=== PATIENT | female | born 1930 | race Caucasian/White ===

== ENCOUNTER → 2016-10-21 | Outpatient (CLI) | payer BC ==
[~2016-10-21] MED LIST: ASPEC81 PO; CALCTAB5 PO; LEVO125T57 PO; LISI5TAB3 PO; MULT-506 PO; NTRGSL/4 UT; PANT40TA PO
== END | disposition home or self-care (01) ==
LOC: C.LAB1850 08:47
PROVIDERS: ATTEND Internal Medicine
DX: E03.9 Hypothyroidism, unspecified (principal)

== ENCOUNTER → 2017-03-28 | Outpatient (CLI) | payer BC ==
--- NOTE | 2017-03-28 12:37 | MAMMOGRAPHY REPORT ---
UNILATERAL LEFT DIGITAL DIAGNOSTIC MAMMOGRAM TOMOSYNTHESIS WITH CAD: 03/28/2017 CLINICAL HISTORY: 86-year-old woman presents for follow-up of the left breast. She recently underwen t core needle biopsy for a dense hypoechoic mass in the 12:00 left breast which yielded benign stroma l fibrosis. This was an area that had been previously biopsied years ago and also yielded benign pat hology, but looked increasingly conspicuous on ultrasound. Also follow-up of an asymmetry in the sup erior left breast on the MLO view, projecting over the pectoralis muscle. TECHNIQUE: Left breast tomosynthesis in addition to standard 2D mammography was performed. Current st udy was also evaluated with a Computer Aided Detection (CAD) system. COMPARISON: Comparison is made to exams dated: 08/16/2016 mammogram, 08/16/2016 ultrasound biopsy, 1 10/11/2015 ultrasound, 08/11/2016 mammogram, 07/28/2016 mammogram, and 07/25/2015 mammogram - [facility]. BREAST COMPOSITION: The tissue of the left breast is heterogeneously dense, which may obscure small masses. FINDINGS: There is a ring shaped metallic biopsy marker clip in the 12:00 anterior left breast, denot ing the site of the biopsied stromal fibrosis. There are stable groupings of benign-appearing calcif ications elsewhere in the left breast. Mild vascular calcification. The asymmetry projecting in the superior posterior left breast, over the pectoralis muscle on the MLO view is less conspicuous lexa ring to the July mammograms. When comparing back to all available prior mammograms, this asymmet ry appears very similar to the 2011 exam and also somewhat similar to the other mammograms, suggestin g benign fibroglandular tissue. No new suspicious mass, architectural distortion or cluster of micro calcifications is seen in the left breast. Recommend return to annual screening mammography schedule (due July 2017). IMPRESSION: ACR BI-RADS CATEGORY 2: BENIGN Less prominent left superior asymmetry, which appears very similar to the 2011 mammograms, most likel y normal for the glandular tissue. Stable post biopsy changes in the 12:00 anterior left breast. Th ere is no mammographic evidence of malignancy in the left breast. Return to annual mammogram screenin g schedule is recommended. The patient has been verbally notified of the results. Approximately 10% of breast cancers are not detected with mammography. A negative mammographic report should not delay biopsy if a clinically suggestive mass is present. Marion Munoz M.D. ay/:03/28/2017 10:42:20 Town Planner: Neeru BURGOS(Lindy)(Jim), [facility] letter sent: Normal 1/2 BI-RADS Code: ACR BI-RADS Category 2: Benign
== END | disposition home or self-care (01) ==
LOC: C.MAMM 09:54
PROVIDERS: ATTEND Internal Medicine
DX: Z09 Encounter for follow-up examination after completed treatment for conditions other than malignant neoplasm (principal); N63 Unspecified lump in breast

== ENCOUNTER → 2017-04-05 | Outpatient (CLI) | payer BC ==
--- NOTE | 2017-04-05 11:49 | DIAGNOSTIC IMAGING REPORT ---
BILATERAL CAROTID DOPPLER STUDY HISTORY: Mental status change I10 RzomhefstlwlX25.1 [id number] Lump on neck COMPARISON: None. TECHNIQUE: Real-time, grayscale, and color Doppler sonography of the carotid arteries was performed. Imaging reviewed in the transverse and longitudinal planes. All measurements were calculated based on NASCET criteria. FINDINGS: Antegrade flow is seen in the bilateral vertebral arteries. The brachial pressures are hemodynamically similar. Moderate plaque formation bilaterally The peak systolic velocity within the right ICA is 40. The right systolic ratio is 0.8. The peak systolic velocity within the left ICA is 45. The left systolic ratio is 0.8. IMPRESSION: No hemodynamically significant stenosis seen within the carotid arteries. Mild atherosclerotic change bilaterally Electronically signed by: Reymundo Smith M.D. 04/05/2017 11:47 AM Dictated Date/Time: 04/05/2017 11:46 AM
--- NOTE | 2017-04-05 12:16 | DIAGNOSTIC IMAGING REPORT ---
ULTRASOUND OF THE THYROID GLAND CLINICAL HISTORY: Lymphadenopathy. Palpable finding in the right neck. COMPARISON STUDY: Thyroid ultrasound dated 06/03/[address] scan of the neck dated 09/10/2015. TECHNIQUE: Real-time, grayscale, and color flow sonography of the thyroid gland is performed utilizing a high-frequency linear transducer. Images are reviewed in the transverse and longitudinal planes. FINDINGS: Right lobe: The right lobe of the thyroid gland is atrophic and heterogeneous in echotexture, measuring 2.9 x 1.5 x 1.3 cm. Left lobe: The left lobe of the thyroid gland is atrophic and heterogeneous in echotexture, measuring 2.9 x 1.0 x 1.1 cm. Isthmus: The thyroid isthmus is normal in appearance and measures 0.1 cm in AP diameter. Soft tissues: No cervical lymphadenopathy is identified. The finding of palpable concern corresponds to the right carotid bulb. Small scattered and benign-appearing cervical lymph nodes are incidentally noted. IMPRESSION: 1. The thyroid gland is atrophic and heterogeneous. 2. No cervical lymphadenopathy is seen. 3. The finding of palpable concern in the right neck corresponds to the carotid bulb. Electronically signed by: Oswaldo Bunch M.D. 04/05/2017 12:15 PM Dictated Date/Time: 04/05/2017 12:12 PM
== END | disposition home or self-care (01) ==
LOC: C.ULTRBC 10:40
PROVIDERS: ATTEND Internal Medicine
DX: R22.1 Localized swelling, mass and lump, neck (principal); R59.1 Generalized enlarged lymph nodes; I10 Essential (primary) hypertension

== ENCOUNTER → 2017-10-07 | Outpatient (CLI) | payer BC ==
[2017-10-07 11:17] LABS: BLOOD UREA NITROGEN 33 mg/dl (7-18); CARBON DIOXIDE 25 mmol/L (21-32); CREATININE 1.07 mg/dl (0.60-1.20); GLUCOSE 92 mg/dl (70-99); POTASSIUM 4.2 mmol/L (3.5-5.1); SODIUM 138 mmol/L (136-145)
== END | disposition home or self-care (01) ==
LOC: C.LAB1850 09:59
PROVIDERS: ATTEND Internal Medicine
DX: E03.9 Hypothyroidism, unspecified (principal)

== ENCOUNTER → 2018-04-12 | Outpatient (CLI) | payer BC ==
--- NOTE | 2018-04-12 12:47 | DIAGNOSTIC IMAGING REPORT ---
SOFT TISS HEAD/NECK-THYROID CLINICAL HISTORY: 87 years-old Female with R22.1 Lump on neckplease review [facility]- 03/2017 E X0D E [id number]. COMPARISON: Carotid Doppler 04/05/2017 TECHNIQUE: Multiple real time sonographic images of the neck soft tissues were obtained accessing munoz scale appearance and color doppler flow. FINDINGS: Within the area of palpable concern within the right neck, normal external carotid artery is seen just superficial to the area described by the patient. It is approximately 3 mm from the skin surface. No suspicious lesions, adenopathy or drainable fluid collections identified about the neck. IMPRESSION: Normal external carotid artery likely accounts for the area of palpable concern. No suspicious lesions or adenopathy identified. The above report was generated using voice recognition software. It may contain grammatical, syntax or spelling errors. Electronically signed by: Henry Rodriguez M.D. 04/12/2018 12:45 PM Dictated Date/Time: 04/12/2018 12:43 PM
== END | disposition home or self-care (01) ==
LOC: C.ULTRBC 11:45
PROVIDERS: ATTEND Internal Medicine
DX: R22.1 Localized swelling, mass and lump, neck (principal)

== ENCOUNTER 2019-02-12 11:38 | Observation (INO) ==
[2019-02-12 12:47] LABS: Basophils # (auto) 0.01 K/uL (0-0.2); Basophils % (auto) 0.2 %; Eosinophils # (auto) 0.05 K/uL (0-0.5); Eosinophils % (auto) 1.1 %; Hematocrit (blood only) 41.1 % (37-47); Hemoglobin 13.9 g/dL (12.0-16.0); Immature Granulocytes # (auto) 0.01 K/uL (0.00-0.02); Immature Granulocytes % (auto) 0.2 %; Lymphocytes # (auto) 0.83 K/uL (1.2-3.4); Lymphocytes % (auto) 18.1 %; Mean Corpuscular Hgb Conc 33.8 g/dL (32-36); Mean Corpuscular Volume 93.2 fL (80-100); Monocytes # (auto) 0.42 K/uL (0.11-0.59); Monocytes % (auto) 9.2 %; Neutrophils # (auto) 3.26 K/uL (1.4-6.5); Neutrophils % (auto) 71.2 %; Platelet Count 150 K/uL (130-400); RDW Coefficient of Variation 13.8 % (11.5-14.5); RDW Standard Deviation 47.1 fL (36.4-46.3); Red Blood Count 4.41 M/uL (4.2-5.4); White Blood Count 4.58 K/uL (4.8-10.8)
--- NOTE | 2019-02-12 12:49 | XRay Report ---
XR chest 1V portable CLINICAL HISTORY: chest tightness dyspnea COMPARISON STUDY: 06/21/2018 FINDINGS: Mild stable emphysematous change IMPRESSION: No acute process. The above report was generated using voice recognition software. It may contain grammatical, syntax or spelling errors. Electronically signed by: Reymundo Smith M.D. 02/12/2019 12:48 PM
[2019-02-12 12:55] LABS: Alanine Aminotransferase 13 U/L (12-78); Albumin Level 3.6 gm/dl (3.4-5.0); Aspartate Aminotransferase 17 U/L (15-37); BUN Creatinine Ratio 16.9 (10-20); Blood Urea Nitrogen 20 mg/dl (7-18); Carbon Dioxide 26 mmol/L (21-32); Chloride 109 mmol/L (98-107); Creatinine Clr Calc Pharmacy 29.5 ml/min; Est GFR (African American) 48.9; Est GFR (Non-African American) 42.2; Glucose 92 mg/dl (70-99); Potassium 4.3 mmol/L (3.5-5.1); Sodium 142 mmol/L (136-145)
[2019-02-12 12:58] LABS: Partial Thromboplastin Ratio 0.8; Partial Thromboplastin Time 21.8 Seconds (21.0-31.0); Prothrombin Time 10.3 Seconds (9.0-12.0)
[2019-02-12 13:00] LABS: Albumin Globulin Ratio 1.1 (0.9-2); Alkaline Phosphatase 66 U/L (45-117); Bilirubin,Total 0.5 mg/dl (0.2-1); Globulin 3.4 gm/dl (2.5-4.0); Troponin I < 0.015 ng/ml (0-0.045)
[2019-02-12] MEDS ORDERED: SODIUM CHLORIDE 0.9% 1000ML 500 ML IV ONE (13:11)
[2019-02-12] MEDS ORDERED: SUCRALFATE 1 GM TAB PO STA (13:11)
[2019-02-12] MEDS ORDERED: GI COCKTAIL ED USE PO ONE (13:11)
[2019-02-12] MEDS ORDERED: FAMOTIDINE 20 MG TAB PO ONE (13:11)
--- NOTE | 2019-02-12 14:55 | History & Physical Report ---
Date of Service February 12, 2019 Assessment & Plan (1) Chest pain: 88yo female with substernal chest heaviness, non-exertional in nature. History of HTN with LVH on EKG. No acute ischemic changes, Troponin x 1 negative. Patient denies exertional symptoms. Given age, presence of HTN and LVH patient with Heart Score of 5 -Observation to medical floor with telemetry -ASA 324mg x 1 now then 81mg po daily -Lipids WNL in September, LDL=90 -Trend cardiac markers -Nitro PRN -Stress test in AM Present on Admission?: Yes (2) Hypertension: Blood pressure mildly elevated at 155/98 -Continue Lisinopri, consider increased dosing if patient remains hypertensive -Continue to monitor Present on Admission?: Yes (3) Hypothyroid: Chronic. TSH=0.581 in September -Continue Synthroid 75mcg po daily F/E/N - Heplock. Monitor electrolytes and replete as needed, heart healthy diet, NPO after midnight for stress testing Ppx - low risk for DVT Code - DNR per discussion with patient Dispo - Observation to medical floor with telemetry History of Present Illness Chief Complaint: Chest pain Primary Care Provider: Javy Potts MD Mica Avelar is an 88yo C female with history of hypertension presenting with chest pain. She went to exercise class this AM from 7-9AM during which she lifted weights, walked on the treadmill x 30 minutes then went to her [employer] class. She denies chest discomfort during her workout but reports that she felt fatigued and did not have a lot of "pep". She returned home around 9:30 and ate some breakfast then she developed severe substernal chest heaviness, 9/10 in severity. Pain was non-radiating and non-pleuritic. She felt slightly dizzy as well as nauseated with some diaphoresis. She had a pre- syncopal episode which resolved with laying down. Patient with no known history of CAD, arrhythmia or CHF. She had a stress test appx 7 years ago which was negative for inducible ischemia. Still with mild chest discomfort 2/10. ER Course: Maalox, Pepcid, Sucralfate Allergies Allergy/AdvReac Type Severity Reaction Status Date / Time No Known Allergies Allergy Mild Verified 02/12/19 13:55 Home Medications Home Medications Medication Instructions Recorded Confirmed Type levothyroxine 75 mcg PO QAM 07/10/18 02/12/19 History lisinopril 5 mg PO QAM 07/10/18 02/12/19 History calcium carbonate-vitamin D3 1 tab PO QAM 02/12/19 02/12/19 History [Calcium 500 + D] Past Med/Surg History Family History Mother History of colon resection Other Coronary heart disease Social History Preferred Language: Thai Communication Ability: Effective Beliefs That Will Affect Care: None Current Living Situation: Spouse Feels Safe at Home: Yes Smoking Status: Former smoker Second Hand Exposure: No Hx Alcohol Use: Yes Alcohol type: wine Hx Substance Use: No Review of Systems Review of Systems: All systems reviewed & are unremarkable except as noted in HPI & below +nausea Physical Exam Physical Exam: General: patient resting comfortably, NAD, non-toxic in appearance, AA&O x 4 Skin: warm, dry, intact, no rashes or lesions HEENT: NC/AT, PERRL, EOMI, anicteric sclera, conjunctiva without injection, external ear normal to inspection and nontender, nares patent, moist mucus membranes, dentition intact, no oropharyngeal lesions, neck supple, trachea midline, no LAD, no thyromegaly, no JVD Heart: +S1/S2, regular with ectopy, no m/r/g, no chest wall tenderness Lungs: equal air entry bilaterally, no rales/rhonchi/wheezes Abd: +BS, soft, NT/ND, no masses/organomegaly/ascites Ext: warm, 2+ pulses in UE/LE bilaterally, no clubbing/cyanosis or edema Neuro: nonfocal, patient AA&O x 4, speech intact, no facial droop, moving all extremities on command with equal strength 5/5 Results & Data Vital Signs (Past 12 Hours) Vital Signs Temp Pulse Resp BP Pulse Ox 02/12/19 11:40 36.7 C 65 20 155/98 H 95 Laboratory Results Lab Results 02/12/19 02/12/19 02/12/19 Range/Units 12:17 12:17 12:17 WBC 4.58 L (4.8-10.8) K/uL RBC 4.41 (4.2-5.4) M/uL Hgb 13.9 (12.0-16.0) g/dL Hct 41.1 (37-47) % MCV 93.2 (80-100) fL MCH 31.5 (25-34) pg MCHC 33.8 (32-36) g/dL RDW Std Deviation 47.1 H (36.4-46.3) fL RDW Coeff of [place] 13.8 (11.5-14.5) % Plt Count 150 (130-400) K/uL MPV 10.0 (7.4-10.4) fL Immature Gran % (Auto) 0.2 % Neut % (Auto) 71.2 % Lymph % (Auto) 18.1 % [place] % (Auto) 9.2 % Eos % (Auto) 1.1 % Baso % (Auto) 0.2 % Immature Gran # (Auto) 0.01 (0.00-0.02) K/uL Neut # (Auto) 3.26 (1.4-6.5) K/uL Lymph # (Auto) 0.83 L (1.2-3.4) K/uL [place] # (Auto) 0.42 (0.11-0.59) K/uL Eos # (Auto) 0.05 (0-0.5) K/uL Baso # (Auto) 0.01 (0-0.2) K/uL PT 10.3 (9.0-12.0) Seconds INR 1.0 (0.9-1.1) APTT 21.8 (21.0-31.0) Seconds PTT Ratio 0.8 Sodium 142 (136-145) mmol/L Potassium 4.3 (3.5-5.1) mmol/L Chloride 109 H (98-107) mmol/L Carbon Dioxide 26 (21-32) mmol/L Anion Gap 7.0 (3-11) BUN 20 H (7-18) mg/dl Creatinine 1.17 (0.6-1.2) mg/dl Est Cr Clr Drug Dosing 29.5 ml/min Est GFR ( Amer) 48.9 Est GFR (Non-Af Amer) 42.2 BUN/Creatinine Ratio 16.9 (10-20) Glucose 92 (70-99) mg/dl Calcium 9.0 (8.5-10.1) mg/dl Total Bilirubin 0.5 (0.2-1) mg/dl AST 17 (15-37) U/L ALT 13 (12-78) U/L Alkaline Phosphatase 66 (45-117) U/L Troponin I < 0.015 (0-0.045) ng/ml Total Protein 7.0 (6.4-8.2) gm/dl Albumin 3.6 (3.4-5.0) gm/dl Globulin 3.4 (2.5-4.0) gm/dl Albumin/Globulin Ratio 1.1 (0.9-2) Diagnostic Findings XR chest 1V portable CLINICAL HISTORY: chest tightness dyspnea COMPARISON STUDY: 06/21/2018 FINDINGS: Mild stable emphysematous change IMPRESSION: No acute process. The above report was generated using voice recognition software. It may contain grammatical, syntax or spelling errors. Electronically signed by: Reymundo Smith M.D. 02/12/2019 12:48 PM Dictated: 02/12/19 1247 Transcribed: 02/12/19 1247 ECG Additional Comments: The study shows NSR at 60bpm, normal axis and intervals, +PVCs, +LVH with repolararization abnormality. No acute ischemic changes Code Status & VTE Plan Code Status DNR per discussion with patient Critical Care Time Critical Care Time: No (1) Chest pain Chest pain type: unspecified Qualified Code(s): R07.9 - Chest pain, unspecified (2) Hypertension Hypertension type: essential hypertension Qualified Code(s): I10 - Essential (primary) hypertension
[2019-02-12] MEDS ORDERED: ACETAMINOPHEN 325 MG TAB PO PRN (16:44)
[2019-02-12] MEDS ORDERED: ASPIRIN 81 MG CHEW PO STA (16:44)
[2019-02-12] MEDS ORDERED: ONDANSETRON INJ 2 MG/ML 2 ML VIAL IV PRN (16:44)
[2019-02-12] MEDS ORDERED: NITROGLYCERIN SL 0.4 MG/TAB TAB SL PRN (16:44)
[2019-02-12] MEDS ORDERED: DOCUSATE SODIUM 100 MG CAP PO PRN (16:44)
--- NOTE | 2019-02-12 19:09 | Emergency Department Note ---
Entered by Anna Bernal acting as a scribe for Abrahan Lam MD History of Present Illness General Chief complaint: Cardiac Assessment Stated complaint: CHEST DISCOMFORT, SWEATING Time Seen by Provider: 02/12/19 12:45 Source: patient History of Present Illness Onset (ago): hour(s) 3 Location: chest Radiation: non-radiation Pain Consistency: + constant Maximum Pain Intensity: 8 Quality: + other (pressure) Associated symptoms: + denies other symptoms (abdominal pain), + diaphoresis, + weakness and + other (subjective low blood pressure, flushed) The patient is a 88 y/o female who presents to the ED with complaints of chest pain which is a constant pressure that began this morning and started subsiding since coming to the emergency department. Along with the chest pain, the patient notes becoming flush, sweaty, and weak. She notes that the pain began this morning following exercise and yogurt for breakfast. She reports experiencing pain like this seven years ago, which resulted in a stress test. She notes she took her blood pressure this morning and it was 56 over something. The patient denies abdominal pain and the pain radiating anywhere. Home Medications Home Medications Medication Instructions Recorded Confirmed Type levothyroxine 75 mcg PO QAM 07/10/18 02/12/19 History lisinopril 5 mg PO QAM 07/10/18 02/12/19 History calcium carbonate-vitamin D3 1 tab PO QAM 02/12/19 02/12/19 History [Calcium 500 + D] Allergies Allergy/AdvReac Type Severity Reaction Status Date / Time No Known Allergies Allergy Mild Verified 02/12/19 13:55 Past Med/Surg History Medical History Hypertension Hypothyroidism Surgical History History of appendectomy History of bilateral tubal ligation History of breast biopsy MARKER PRESENT History of colonoscopy History of esophagogastroduodenoscopy (EGD) History of total abdominal hysterectomy and bilateral salpingo-oophorectomy Family History Mother History of colon resection Other Coronary heart disease Social History Preferred Language: Czech Communication Ability: Effective Beliefs That Will Affect Care: None Current Living Situation: Spouse Other Information That Helps Us Care for You: No Feels Safe at Home: Yes Safety Concerns: Feels Safe At This Time Smoking Status: Former smoker Second Hand Exposure: No Hx Alcohol Use: Yes Alcohol type: wine Hx Substance Use: No Review of Systems See HPI for pertinent positives & negatives. and A total of 10 systems reviewed and were otherwise negative Physical Exam Vital Signs Vital Signs - 24 hr 02/12/19 11:40 02/12/19 12:04 02/12/19 12:16 Temperature 36.7 C Temperature Source Oral Sepsis Recent Fever Within 48 Hours No Sepsis Action Taken by Nursing No Action Required Pulse Rate 65 57 L 56 L Pulse Rate [Apical] Pulse Rhythm [Apical] Respiratory Rate 20 30 H 23 Respiratory Effort / Characteristics Respiratory Depth Respiratory Pattern Blood Pressure 155/98 H 156/78 H Blood Pressure [Right Arm] Blood Pressure Mean 117 104 Blood Pressure Mean [Right Arm] Blood Pressure Position Sitting Pulse Oximetry 95 Oxygen Delivery Method Room Air 02/12/19 13:00 02/12/19 14:27 02/12/19 14:44 Temperature Temperature Source Sepsis Recent Fever Within 48 Hours Sepsis Action Taken by Nursing Pulse Rate 51 L 55 L 54 L Pulse Rate [Apical] 57 L Pulse Rhythm [Apical] Regular Respiratory Rate 32 H 26 H 16 Respiratory Effort / Characteristics Non-Labored Spontaneous Respiratory Depth Normal Respiratory Pattern Regular Blood Pressure 161/85 H Blood Pressure [Right Arm] 161/85 H Blood Pressure Mean 110 Blood Pressure Mean [Right Arm] 110 Blood Pressure Position Pulse Oximetry 96 Oxygen Delivery Method Room Air GENERAL: Awake, alert, well-appearing, in no acute distress HENT: Normocephalic, atraumatic. Oropharynx unremarkable. EYES: Normal conjunctiva. Sclera non-icteric. NECK: Supple. No nuchal rigidity. FROM. No JVD. RESPIRATORY: Clear to auscultation. CARDIAC: Regular rate, normal rhythm. Extremities warm and well perfused. Pulses equal. ABDOMEN: Soft, non-distended. No tenderness to palpation. No rebound or guarding. No masses. RECTAL: Deferred. MUSCULOSKELETAL: Chest examination reveals no tenderness. The back is symmetrical on inspection without obvious abnormality. There is no CVA tenderness to palpation. No joint edema. LOWER EXTREMITIES: Calves are equal size bilaterally and non-tender. No edema. No discoloration. NEURO: Normal sensorium. No sensory or motor deficits noted. SKIN: No rash or jaundice noted. Course 1308: The patient was evaluated in room C02. A complete history and physical exam was performed. 1328: I revaluated the patient she was resting comfortably. I undated her on her test results and treatment plan. She verbally agrees and understands. 1410: I discussed the patients case with ADAIR Jenkins hospitalist. She will evaluate the patient for further management. Consultations Consultation #1: I discussed the patients case with ADAIR Jenkins hospitalist. She will evaluate the patient for further management. Time: 14:10 Administered Medications Discontinued Medications Al Hydrox/Mg Hydrox/Simethicone () 1 dose PO ONE ONE Stop: 02/12/19 13:12 Last Admin: 02/12/19 13:23 Dose: 1 dose Documented by: [id number] Aspirin (Aspirin Chew) 324 mg PO NOW STA Stop: 02/12/19 16:45 Last Admin: 02/12/19 17:20 Dose: 324 mg Documented by: [id number] Famotidine (Pepcid) 20 mg PO NOW ONE Stop: 02/12/19 13:12 Last Admin: 02/12/19 13:23 Dose: 20 mg Documented by: [id number] Sodium Chloride (Nss 1000ml) 500 mls @ 999 mls/hr IV .Q31M ONE Stop: 02/12/19 13:41 Last Infusion: 02/12/19 14:05 Dose: 0 mls/hr Documented by: [id number] Admin: 02/12/19 13:24 Dose: 999 mls/hr Documented by: [id number] Sucralfate (Carafate Tab) 1 gm PO NOW STA Stop: 02/12/19 13:12 Last Admin: 02/12/19 13:23 Dose: 1 gm Documented by: [id number] Medical Decision Making Differential Diagnosis Differential diagnosis: Etiologies such as shingles, musculoskeletal pain, pericarditis, myocarditis, ca rdiac ischemia, pericardial tamponade, pneumonia, pneumothorax, pleural effusion, hemothorax, pleurisy, aortic pathology, pulmonary embolism, intra- abdominal process, as well as others were considered. Medical Records Attestation: I reviewed the patient's medical records. Home Medications Current Medication List: was personally reviewed by me Laboratory Data Attestation: I reviewed the patient's lab results. Result diagrams: 02/12/19 12:17 02/12/19 12:17 Lab Results 02/12/19 02/12/19 02/12/19 Range/Units 12:17 12:17 12:17 WBC 4.58 L (4.8-10.8) K/uL RBC 4.41 (4.2-5.4) M/uL Hgb 13.9 (12.0-16.0) g/dL Hct 41.1 (37-47) % MCV 93.2 (80-100) fL MCH 31.5 (25-34) pg MCHC 33.8 (32-36) g/dL RDW Std Deviation 47.1 H (36.4-46.3) fL RDW Coeff of [place] 13.8 (11.5-14.5) % Plt Count 150 (130-400) K/uL MPV 10.0 (7.4-10.4) fL Immature Gran % (Auto) 0.2 % Neut % (Auto) 71.2 % Lymph % (Auto) 18.1 % [place] % (Auto) 9.2 % Eos % (Auto) 1.1 % Baso % (Auto) 0.2 % Immature Gran # (Auto) 0.01 (0.00-0.02) K/uL Neut # (Auto) 3.26 (1.4-6.5) K/uL Lymph # (Auto) 0.83 L (1.2-3.4) K/uL [place] # (Auto) 0.42 (0.11-0.59) K/uL Eos # (Auto) 0.05 (0-0.5) K/uL Baso # (Auto) 0.01 (0-0.2) K/uL PT 10.3 (9.0-12.0) Seconds INR 1.0 (0.9-1.1) APTT 21.8 (21.0-31.0) Seconds PTT Ratio 0.8 Sodium 142 (136-145) mmol/L Potassium 4.3 (3.5-5.1) mmol/L Chloride 109 H (98-107) mmol/L Carbon Dioxide 26 (21-32) mmol/L Anion Gap 7.0 (3-11) BUN 20 H (7-18) mg/dl Creatinine 1.17 (0.6-1.2) mg/dl Est Cr Clr Drug Dosing 29.5 ml/min Est GFR ( Amer) 48.9 Est GFR (Non-Af Amer) 42.2 BUN/Creatinine Ratio 16.9 (10-20) Glucose 92 (70-99) mg/dl Calcium 9.0 (8.5-10.1) mg/dl Total Bilirubin 0.5 (0.2-1) mg/dl AST 17 (15-37) U/L ALT 13 (12-78) U/L Alkaline Phosphatase 66 (45-117) U/L Troponin I < 0.015 (0-0.045) ng/ml Total Protein 7.0 (6.4-8.2) gm/dl Albumin 3.6 (3.4-5.0) gm/dl Globulin 3.4 (2.5-4.0) gm/dl Albumin/Globulin Ratio 1.1 (0.9-2) Blood Pressure Blood Pressure Findings: Elevated blood pressure Blood Pressure Disposition: further management by hospitalist IMTIAZ Narrative This is an 88-year-old female who presents emergency department complaining of chest pain. Immediately after the chest pain the patient had what appears to be a vasovagal incident. Upon arrival to the emergency department the patient is pain-free. She was given a normal saline bolus here in the emergency department. She has a normal CBC as well as a normal renal profile. Here in the emergency department the patient was given nitro as well as aspirin GI cocktail Pepcid and Carafate. Repeat examination revealed improvement in the patient's symptoms. I gave the patient the option of being discharged for close follow-up with cardiology however she would like to be admitted therefore I did discuss the case with the hospitalist service who agreed to see the patient. Impression & Plan Chest pain Discharge Plan Visit Data *Final* Discharge Date/Time: 02/12/19 16:31 Chief Complaint: Cardiac Assessment Stated Complaint: CHEST DISCOMFORT, SWEATING ED Provider: Abrahan Lam Discharge Problem: Chest pain Patient Disposition: Admitted As Inpatient Discharge Instructions Interventions: ED Discharge Assessment Last Done: 02/12/19 16:31 Discharge Problem: Chest pain Qualifiers: Chest pain type: unspecified Qualified Code(s): R07.9 - Chest pain, unspecified The scribe's documentation has been prepared under my direction and personally reviewed by me in its entirety. I confirm that the note above accurately reflects all work, treatment, procedures, and medical decision making performed by me.
[2019-02-12 21:09] LABS: Magnesium 2.2 mg/dl (1.8-2.4); Phosphorus 3.2 mg/dl (2.5-4.9); Troponin I 0.016 ng/ml (0-0.045)
[2019-02-13 04:14] LABS: Basophils # (auto) 0.01 K/uL (0-0.2); Basophils % (auto) 0.3 %; Eosinophils # (auto) 0.13 K/uL (0-0.5); Hematocrit (blood only) 37.3 % (37-47); Hemoglobin 12.8 g/dL (12.0-16.0); Lymphocytes # (auto) 1.16 K/uL (1.2-3.4); Lymphocytes % (auto) 35.5 %; Mean Corpuscular Hgb Conc 34.3 g/dL (32-36); Mean Corpuscular Volume 92.8 fL (80-100); Mean Platelet Volume 9.6 fL (7.4-10.4); Monocytes # (auto) 0.47 K/uL (0.11-0.59); Monocytes % (auto) 14.4 %; Neutrophils % (auto) 45.8 %; Platelet Count 135 K/uL (130-400); RDW Coefficient of Variation 13.7 % (11.5-14.5); RDW Standard Deviation 46.7 fL (36.4-46.3); Red Blood Count 4.02 M/uL (4.2-5.4); White Blood Count 3.27 K/uL (4.8-10.8)
[2019-02-13 04:35] LABS: BUN Creatinine Ratio 20.4 (10-20); Blood Urea Nitrogen 21 mg/dl (7-18); Calcium 8.3 mg/dl (8.5-10.1); Carbon Dioxide 29 mmol/L (21-32); Chloride 110 mmol/L (98-107); Creatinine Clr Calc Pharmacy 32.8 ml/min; Est GFR (African American) 55.7; Est GFR (Non-African American) 48.1; Glucose 85 mg/dl (70-99); Potassium 4.3 mmol/L (3.5-5.1); Sodium 141 mmol/L (136-145)
[2019-02-13 04:39] LABS: Troponin I < 0.015 ng/ml (0-0.045)
[2019-02-13] MEDS: LEVOTHYROXINE SODIUM 75 MCG TABLET PO SCH (06:04)
[2019-02-13] MEDS: ASPIRIN 81 MG ECTAB PO SCH (07:59)
[2019-02-13] MEDS ORDERED: LISINOPRIL 10 MG TAB PO SCH (09:00)
[2019-02-13 16:26] LABS: Lyme Ab IgG w/WB Rflx Negative (Negative); Lyme Ab IgM w/WB Rflx Negative (Negative)
[2019-02-13 16:47] LABS: Folate (Folic Acid) 16.92 ng/ml (>5.38)
[2019-02-13] MEDS ORDERED: LISINOPRIL 5 MG TAB PO ONE (17:47)
[2019-02-13] MEDS: DOXYCYCLINE HYCLATE 100 MG CAP PO SCH (19:31)
[2019-02-13] MEDS: CYANOCOBALAMIN 500 MCG TABLET (VITAMIN B-12) PO SCH (19:31)
--- NOTE | 2019-02-13 22:07 | Hospitalist Progress Note ---
Date of Service February 13, 2019 Assessment & Plan (1) Chest pain: Trops neg x 3. Tele w/o dysrhythmia although has significant bradycardia - no AV block or pauses. Lyme's negative. TSH wnl. Did have chronotropic response with stress today. Stress test - negative, although didn't hit target heart rate. Low suspicion that pain was ischemic in origin. Etiology? Nothing pleuritic to suggest PE, pericarditis etc Nothing reproducible on exam. (2) Hypertension: poorly controlled increase AMEE to 10mg/day (3) Hypothyroid: Chronic. TSH=0.581 in September Continue Synthroid 75mcg po daily (4) Leukopenia: always has low-normal WBC count (5-6 range) but much worse this admission. also now w/ mild thrombocytopenia. [place]. erhlichia? other? send titers for such. start doxy 100mg BID. (5) Thrombocytopenia: see above in "leukopenia" also checked b12/folate -- is b12 deficient - could be contributing start b12 replacement (6) Chronic kidney disease, stage 3a: Cr stable BMP in am (7) B12 deficiency: start vit B12 1000mcg daily x 1 year (8) Sinus bradycardia: TSH wnl Lyme's negative uncertain if this is causing symptoms for her cont to monitor on tele overnight repeat cbc in am; if stable can likely d/c home Subjective patient feels much better today. denies any recurrent chest pain. had no pain with stress test today. tele with sinus humberto. felt like she was ill yesterday. mentions they have a camp on [facility] and they go there minimum twice a week. lots of ticks there. Review of Systems Constitutional: + chills and + fatigue; no fever and no anorexia Respiratory: no cough and no dyspnea Cardiovascular: as per Subjective / HPI Gastrointestinal: no abdominal pain, no nausea and no vomiting Physical Exam Constitutional: + thin; no acute distress and no altered mental status ENMT: external ear and nose normal, oropharynx normal Respiratory: normal respiratory effort, lungs clear to auscultation Cardiovascular: Rate/Rhythm: regular rate and regular rhythm Heart Sounds: normal S1, normal S2 and + murmur (2/6 LLSB) Vessels: posterior tibial pulses present and dorsalis pedis pulses present; no JVD Chest (Breasts): Additional Comments: no pain w/ palpation over chest wall Gastrointestinal (Abdomen): normal bowel sounds, soft, nontender, no hepatosplenomegaly Skin: no rashes, warm and dry Lymphatic: no cervical lymphadenopathy Results & Data Vital Signs (Past 12 Hours) Vital Signs Temp Pulse Pulse Resp BP Pulse Ox 02/13/19 19:34 36.7 C 49 L 20 152/87 H 96 02/13/19 16:00 64 02/13/19 15:08 37.2 C 59 L 16 173/86 H 97 02/13/19 11:31 36.9 C 51 L 18 181/93 H 95 Laboratory Results Laboratory Results - last 24 hr 02/13/19 02/13/19 02/13/19 03:56 03:56 15:05 WBC 3.27 L RBC 4.02 L Hgb 12.8 Hct 37.3 MCV 92.8 MCH 31.8 MCHC 34.3 RDW Std Deviation 46.7 H RDW Coeff of [place] 13.7 Plt Count 135 MPV 9.6 Immature Gran % (Auto) 0.0 Neut % (Auto) 45.8 Lymph % (Auto) 35.5 Smyth % (Auto) 14.4 Eos % (Auto) 4.0 Baso % (Auto) 0.3 Immature Gran # (Auto) 0.00 Neut # (Auto) 1.50 Lymph # (Auto) 1.16 L Smyth # (Auto) 0.47 Eos # (Auto) 0.13 Baso # (Auto) 0.01 Sodium 141 Potassium 4.3 Chloride 110 H Carbon Dioxide 29 Anion Gap 2.0 L BUN 21 H Creatinine 1.05 Est Cr Clr Drug Dosing 32.8 Est GFR ( Amer) 55.7 Est GFR (Non-Af Amer) 48.1 BUN/Creatinine Ratio 20.4 H Glucose 85 Calcium 8.3 L Troponin I < 0.015 Vitamin B12 207 L Folate 16.92 A. phagocytophilum IgG A. phagocytophilum IgM A.phagocytophilum Intrp A. phagocytophilum Cmmt Lyme Disease IgG Ab Lyme Disease IgM Ab E. chaffeensis IgG Ab E. chaffeensis IgM Ab E. chaffeensis Interp E. chaffeensis Comment Monoscreen 02/13/19 02/13/19 15:05 15:05 WBC RBC Hgb Hct MCV MCH MCHC RDW Std Deviation RDW Coeff of [place] Plt Count MPV Immature Gran % (Auto) Neut % (Auto) Lymph % (Auto) Smyth % (Auto) Eos % (Auto) Baso % (Auto) Immature Gran # (Auto) Neut # (Auto) Lymph # (Auto) Smyth # (Auto) Eos # (Auto) Baso # (Auto) Sodium Potassium Chloride Carbon Dioxide Anion Gap BUN Creatinine Est Cr Clr Drug Dosing Est GFR ( Amer) Est GFR (Non-Af Amer) BUN/Creatinine Ratio Glucose Calcium Troponin I Vitamin B12 Folate A. phagocytophilum IgG Pending A. phagocytophilum IgM Pending A.phagocytophilum Intrp Pending A. phagocytophilum Cmmt Pending Lyme Disease IgG Ab Negative Lyme Disease IgM Ab Negative E. chaffeensis IgG Ab Pending E. chaffeensis IgM Ab Pending E. chaffeensis Interp Pending E. chaffeensis Comment Pending Monoscreen Negative (1) Chest pain Chest pain type: unspecified Qualified Code(s): R07.9 - Chest pain, unspecified (2) Hypertension Hypertension type: essential hypertension Qualified Code(s): I10 - Essential (primary) hypertension (3) Hypothyroid Hypothyroidism type: acquired Qualified Code(s): E03.9 - Hypothyroidism, unspecified (4) Leukopenia Leukopenia type: other Qualified Code(s): D72.818 - Other decreased white blood cell count
[2019-02-14] MEDS: LEVOTHYROXINE SODIUM 75 MCG TABLET PO SCH (05:53)
[2019-02-14 06:56] LABS: Basophils # (auto) 0.02 K/uL (0-0.2); Basophils % (auto) 0.6 %; Eosinophils % (auto) 2.9 %; Hematocrit (blood only) 40.8 % (37-47); Hemoglobin 13.7 g/dL (12.0-16.0); Lymphocytes # (auto) 1.14 K/uL (1.2-3.4); Lymphocytes % (auto) 33.3 %; Mean Corpuscular Hgb Conc 33.6 g/dL (32-36); Mean Corpuscular Volume 92.9 fL (80-100); Mean Platelet Volume 10.2 fL (7.4-10.4); Monocytes # (auto) 0.32 K/uL (0.11-0.59); Monocytes % (auto) 9.4 %; Neutrophils # (auto) 1.84 K/uL (1.4-6.5); Neutrophils % (auto) 53.8 %; Platelet Count 147 K/uL (130-400); RDW Coefficient of Variation 13.7 % (11.5-14.5); RDW Standard Deviation 46.4 fL (36.4-46.3); Red Blood Count 4.39 M/uL (4.2-5.4); White Blood Count 3.42 K/uL (4.8-10.8)
[2019-02-14 07:28] LABS: BUN Creatinine Ratio 19.3 (10-20); Calcium 8.8 mg/dl (8.5-10.1); Creatinine Clr Calc Pharmacy 29.2 ml/min; Est GFR (African American) 49.4; Est GFR (Non-African American) 42.6; Potassium 4.2 mmol/L (3.5-5.1)
[2019-02-14] MEDS: ASPIRIN 81 MG ECTAB PO SCH (07:45)
[2019-02-14] MEDS: DOXYCYCLINE HYCLATE 100 MG CAP PO SCH (07:46)
[2019-02-14] MEDS ORDERED: LISINOPRIL 10 MG TAB PO SCH (09:00)
[2019-02-14] MEDS: CYANOCOBALAMIN 500 MCG TABLET (VITAMIN B-12) PO SCH (10:07)
[2019-02-18 20:22] LABS: Anaplasma phagocytophila IgM <1:20 (<1:20); Ehrlichia chaff IgG Ab <1:64 (<1:64); Ehrlichia chaff IgM Ab <1:20 (<1:20)
--- NOTE | 2019-02-19 22:34 | Discharge Summary ---
Date of Service date of admission - February 12, 2019 date of discharge - February 14, 2019 Admission HPI Per Admitting Provider Mica Avelar is an 88yo female with history of hypertension presenting with chest pain. She went to exercise class this AM from 7-9AM during which she lifted weights, walked on the treadmill x 30 minutes then went to her [employer] class. She denies chest discomfort during her workout but reports that she felt fatigued and did not have a lot of "pep". She returned home around 9:30 and ate some breakfast then she developed severe substernal chest heaviness, 9/10 in severity. Pain was non-radiating and non-pleuritic. She felt slightly dizzy as well as nauseated with some diaphoresis. She had a pre- syncopal episode which resolved with laying down. Patient with no known history of CAD, arrhythmia or CHF. She had a stress test appx 7 years ago which was negative for inducible ischemia. Still with mild chest discomfort 2/10. Principal Diagnosis chest pain, ACS ruled out, negative stress test Discharge Exam Constitutional + thin; no acute distress and no altered mental status ENMT external ear and nose normal, oropharynx normal Respiratory normal respiratory effort, lungs clear to auscultation Cardiovascular Rate/Rhythm: regular rate and regular rhythm Heart Sounds: normal S1, normal S2 and + murmur (2/6 LLSB) Vessels: posterior tibial pulses present and dorsalis pedis pulses present; no JVD Gastrointestinal (Abdomen) normal bowel sounds, soft, nontender, no hepatosplenomegaly Skin no rashes, warm and dry Psychiatric A+Ox3, euthymic affect Lymphatic no cervical lymphadenopathy Discharge Data Allergies Allergy/AdvReac Type Severity Reaction Status Date / Time No Known Allergies Allergy Mild Verified 02/12/19 13:55 Procedures Performed exercise stress echocardiogram - * normal LV function * mild mitral valve prolapse * moderate mitral regurgitation * aortic sclerosis but no stenosis * nondiagnostic stress test due to inability to achieve target heart rate * no ischemic changes at heart rate achieved, however Hospital Course (1) Chest pain: Troponins negative x 3. Telemetry without dysrhythmia although she did have significant bradycardia. No AV block or pauses seen, however. Lyme's testing was negative. TSH was normal. Stress test - negative, although didn't hit target heart rate. Low suspicion that pain was ischemic in origin. Nothing pleuritic to suggest PE, pericarditis etc Nothing reproducible on exam. Etiology - GI? Musculoskeletal? Her pain did not recur at any time. If she were to have recurrent chest pain episodes she would need referral back to cardiology for additional testing. (2) Sinus bradycardia: TSH wnl Lyme's negative Heart rates often hit the upper 30s/low 40s on monitoring during sleep. Usually 50s/60s while awake. During her stress test she failed to achieve target heart rate despite excellent efforts and stamina on the treadmill. Thus, she likely has chronotropic incompetence. If during exercise she suddenly starts to experience fatigue, lack of energy, dyspnea, or inability to finish her exercise then she should be referred back to cardiology for consideration of pacemaker. (3) Hypertension: poorly controlled during the stay. AMEE was increased to 10mg/day while here. (4) Hypothyroid: Chronic. TSH=0.581 in September 2018. Continue Synthroid 75mcg po daily. (5) Leukopenia: always has low-normal WBC count (5-6 range) but much worse this admission. also now w/ mild thrombocytopenia. [place] tick exposure [place]. erhlichia? other? sent titers for such. started doxy 100mg BID and sent her home with the antibiotic while awaiting lab testing. (6) Thrombocytopenia: see above in "leukopenia" also checked b12/folate -- was b12 deficient - could be contributing to low WBC and low platelets. started b12 replacement. (7) Chronic kidney disease, stage 3a: Cr stable during the stay. Cr 1.1. (8) B12 deficiency: Level was 207. Recommended vitamin B12 1000mcg daily x 1 year at minimum. Total Time Total Time Spent Total Time Spent (In Minutes): 35 Total Time Includes: Examination of the Patient, Discharge Planning and Medication Reconciliation Discharge Plan Discharge Items Patient Disposition: Home - Self-Care Reason For Visit: CHEST PAIN Discharge Diagnosis: chest pain - negative stress test; no evidence of heart attack. Vitamin B12 deficiency. Low white blood cell count; low platelet count -- possibilities include vitamin B12 deficiency, viral illness or tick-borne illness. Discharge Goals: Diagnostic testing Activity: Resume your previous activity Non-emergency contact: Primary Care Provider Call non-emergency contact if: you have any medication questions, your symptoms worsen and your temperature is above 100.5 Follow-up/Referrals: Javy Knowles MD [Primary Care Provider] - 02/22/19 11:40 am (Please, follow up with Dr. Martin on February 22 at 11:40 am. *If you need to change this appointment, call the office at [phone].) Diet: Regular Other Ambulatory Orders: Complete Blood Count with Diff (Routine) Timeframe: [id number] Location: Determined by Patient Ordered By: Jony Sellers Add Provider Instructions: From Jony Sellers, Hospitalist- You were admitted due to not feeling well and chest pain/discomfort. All of your blood work for heart attack was negative. Your stress test was normal -- that is, we do not think that your chest pain came from your heart. You seemed to have been feeling ill from some form of sickness. I cannot exclude that you had a virus or a tick-borne illness especially since your white blood cell count and platelet count were mildly low. I started you on antibiotic for tick diseases as a precautionary measure while we wait for your tick disease blood work to return (will take about 1 week). Your lyme's testing was negative. Your mono testing (this is a virus) was negative. We also found that you have vitamin B12 deficiency. Vitamin B12 deficiency can make your white count and platelet count go low. You will need to take B12 supplement for at least 1 year. We saw on heart monitoring that your heart rate was low at times. There is nothing to do at this time. If you notice exercise intolerance -- that is, if you notice in the next year that you don't have energy while exercising, have shortness of breath, have fatigue, etc -- you will need to be referred to cardiology for this and have it addressed at that time. Finally, your echocardiogram showed that you have a leaky mitral valve. There is nothing to do at this time. However, a repeat echo in 1-2 years is advised. Recommendations - 1. take doxycycline 100mg twice a day for 13 more days starting TONIGHT. * this antibiotic can cause heartburn * it can also cause a rash if you go out in the sun; thus, cover up and use sunscreen * this antibiotic is to cover for the possibility of tick-borne illness 2. take cczr-bky-sasadti Vitamin B12 1000mcg once daily for at least 1 year. 3. have a repeat CBC in about 5-6 days. See separate script. 4. INCREASE your lisinopril to 10mg once daily for your blood pressure. [facility]cription sent to [facility] Follow-up -- see separate section. Return to [facility] if -- * you have fevers over 100.5 degrees * you have rashes * you have worsening shortness of breath or chest pain * any other concerns Prescriptions: New cyanocobalamin (vitamin B-12) [Vitamin B-12] 500 mcg Tablet 1,000 mcg PO QAM Qty: 90 RF: 3 doxycycline hyclate 100 mg Capsule 100 mg PO BID 13 Days Qty: 26 RF: 0 Continued levothyroxine 75 mcg Capsule 75 mcg PO QAM RF: 0 calcium carbonate-vitamin D3 [Calcium 500 + D] 500 mg(1,250mg) -200 unit Tablet 1 tab PO QAM RF: 0 Changed lisinopril 10 mg Tablet 10 mg PO QAM Qty: 30 RF: 2 Stand-Alone Forms: [facility] Discharge Orders: Discharge Order (Routine); Ordered 02/14/19 Ordered By: Jony Sellers Admission Data Admit Date/Time: 02/12/19 14:51 Attending Provider: Jony Sellers Admit Provider: Ann Marie Thomas Primary Care Provider: Javy Knowles V. Other Providers: Ann Marie Thomas Service: Telemetry Medical Other Interventions: Discharge Summary Assessment (RN) Last Done: 02/14/19 11:28 Pending Studies at Discharge: Yes Studies:: testing for anaplasmosis, ehrlichia (tick illnesses) DC Date/Time DO NOT enter until pt leaves facility: 02/14/19 13:00
== END 2019-02-14 13:00 | disposition home or self-care (01) ==
LOC: ED 11:38 → 2N 11:38 → SUATTDRO 14:51 → 2N 16:31